=== PATIENT | female | born 1945 | race Caucasian/White ===

== ENCOUNTER 2023-06-21 07:34 | Day surgery (SDC) | payer MEDICARE ==
[2023-06-21] MEDS ORDERED: Epinephrine Preservative Free 1 MG/ML IJ ONE (07:35)
[2023-06-21] MEDS ORDERED: Lactated Ringers 1,000 ML IV SCH (08:00)
[2023-06-21] MEDS ORDERED: cefUROXime sodium 0.005 GM in Sodium Chloride Flush 30 ML*** 0.5 ML IJ ONE (08:00)
[2023-06-21] MEDS ORDERED: TETRACAINE 0.5% STERI-UNIT SOL OP ONE ×2 (08:00)
[2023-06-21] MEDS ORDERED: BETADINE 5% OPHTHALMIC 30 ML OP ONE (08:00)
[2023-06-21] MEDS ORDERED: Ak-Dilate OPHTHALMIC*** 1.065 ML, Cyclogyl 1% OPHTH SOL 1.065 ML, GATIFLOXACIN 0.5% OPH... OP ONE ×4 (08:00)
[2023-06-21] MEDS ORDERED: NON-FORMULARY ITEM OP ONE (08:00)
[2023-06-21] MEDS ORDERED: Lactated Ringers 1,000 ML IV ONE ×2 (08:13→08:25)
[2023-06-21] MEDS ORDERED: Zofran 4 MG/2 ML VIAL IV PRN (10:00)
[2023-06-21] MEDS ORDERED: ACETAZOLAMIDE 250 MG TABLET PO ONE (10:00)
[2023-06-21] MEDS ORDERED: DIPRIVAN 200 MG/20 ML IV ONE ×2 (11:17→11:32)
[2023-06-21] MEDS ORDERED: Xylocaine-Mpf 2% 5 Ml Vial ONE (11:21)
[2023-06-21 11:53] VITALS: RESP 16
[2023-06-21 12:04] VITALS: BP 151/84; PULSE 65; TEMP 96.8; O2SAT 95
== END 2023-06-21 12:11 | disposition home or self-care (01) ==
LOC: SDC 07:34
PROVIDERS: ATTEND Ophthalmology
DX: H25.811 Combined forms of age-related cataract, right eye (principal)
CPT/HCPCS: J0171; J2704; A9270-GY